=== PATIENT | female | born 1940 | race Hispanic/Latino ===

== ENCOUNTER 2016-08-16 12:08 | Outpatient (CLI) | payer MEDICARE, OTHER ==
[2016-08-16 13:06] LABS: Blood Urea Nitrogen 17 mg/dL (7-17)
[2016-08-16] MEDS ORDERED: NACL ONE (13:06)
--- NOTE | 2016-08-16 14:05 | Cat Scan Report ---
CT angiography of the chest with 3-D reconstructed images. History: Chest pain and positive history of pulmonary emboli in February 2015. Correlation with that study is made. Findings: There is no evidence of pulmonary emboli on today's study. The mediastinum and hilar regions are unremarkable. The lungs are clear. There is no pleural fluid. 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 Images which include a portion of the upper abdomen demonstrate a cystic mass in the left lobe of the liver unchanged from the previous study. Impression: No evidence of pulmonary emboli. 2. Stable hepatic cyst.
== END 2016-08-16 12:09 | disposition home or self-care (01) ==
LOC: CT 12:08
PROVIDERS: ATTEND Specialist
DX: I26.99 Other pulmonary embolism without acute cor pulmonale (principal); K76.89 Other specified diseases of liver; S53.104A Unspecified dislocation of right ulnohumeral joint, initial encounter; X58.XXXA Exposure to other specified factors, initial encounter; Y93.89 Activity, other specified; Y92.89 Other specified places as the place of occurrence of the external cause; Y99.8 Other external cause status
CPT/HCPCS: 36415; 71275; 82565; 84520; Q9967

== ENCOUNTER 2017-05-23 13:31 | Emergency (ER) | payer MEDICARE, OTHER ==
[2017-05-23] MEDS ORDERED: NACL 0.9% 1000 ML 1,000 ML IV ONE (14:38)
[2017-05-23 15:16] LABS: Basophils % (Auto) 0.2 % (0.0-1.8); Hematocrit 51.3 % (30.3-42.9); Hemoglobin 16.3 gm/dl (10.1-14.3); Lymphocytes # (Auto) 2.3 K/mm3 (1.2-5.4); Lymphocytes % (Auto) 12.4 % (13.4-35.0); Mean Corpuscular HGB Conc 32 % (30-34); Mean Corpuscular Hemoglobin 29 pg (28-32); Mean Corpuscular Volume 90 fl (79-97); Monocytes # (Auto) 0.8 K/mm3 (0.0-0.8); Monocytes % (Auto) 4.1 % (0.0-7.3); Platelet Count 217 K/mm3 (140-440); Red Blood Count 5.73 M/mm3 (3.65-5.03); Red Cell Distribution Width 15.1 % (13.2-15.2)
[2017-05-23 15:27] LABS: INR 1.02 (0.87-1.13); Partial Thromboplastin Time 32.5 Sec. (24.2-36.6)
[2017-05-23 15:41] LABS: Alanine Aminotransferase 10 units/L (7-56); Albumin 3.3 g/dL (3.9-5); BUN/Creatinine Ratio 20; Blood Urea Nitrogen 16 mg/dL (7-17); Calcium 8.9 mg/dL (8.4-10.2); Hemolysis Index 17; Lipase 21 units/L (13-60)
--- NOTE | 2017-05-24 07:19 | Emergency Department Report ---
ED General Adult HPI - General Chief complaint: GI Bleed Stated complaint: BLEEDING THROUGH RECTUM Time Seen by Provider: 05/24/17 06:49 Source: patient Mode of arrival: Wheelchair Limitations: No Limitations - History of Present Illness Initial comments: The patient states that she has a history of internal hemorrhoids. She noted one episode of bright blood per rectum she states approximately 18 hours ago. It was a small quantity. She states that her stool was hard at that time. She is currently taking Eliquis. She has never had a colonoscopy and is aware that one is recommended. She states she has discussed this with her primary care physician before. She does not complain of any abdominal pain. She is asymptomatic at this time. -: Gradual, minutes(s) Severity scale (0 -10): 0 Consistency: now resolved Improves with: none Worsens with: none Associated Symptoms: denies other symptoms Treatments Prior to Arrival: none - Related Data Home Medications Medication Instructions Recorded Confirmed Last Taken Atorvastatin Calcium [Lipitor] 20 mg PO QHS 02/14/15 03/06/15 03/06/15 Diltiazem HCl [Diltiazem 24Hr ER] 360 mg PO DAILY 02/14/15 03/06/15 03/06/15 Lisinopril [Zestril TAB] 20 mg PO QDAY 02/14/15 03/06/15 03/06/15 Oxaprozin [Daypro] 600 mg PO BID 02/14/15 03/06/15 03/06/15 Previous Rx's Medication Instructions Recorded Last Taken Type Apixaban [Eliquis] 5 mg PO BID #60 tablet 03/11/15 Unknown Rx Metoprolol [Lopressor TAB] 25 mg PO BID #60 tablet 03/11/15 Unknown Rx oxyCODONE /ACETAMINOPHEN [Percocet 1 tab PO Q6H PRN #30 tablet 03/11/15 Unknown Rx 5/325 mg] Docusate Sodium [Colace] 100 mg PO BID #30 capsule 05/24/17 Unknown Rx Allergies Allergy/AdvReac Type Severity Reaction Status Date / Time No Known Allergies Allergy Verified 02/14/15 14:16 ED Review of Systems ROS: Stated complaint: BLEEDING THROUGH RECTUM Other details as noted in HPI Constitutional: denies: chills, fever Eyes: denies: eye pain, eye discharge, vision change ENT: denies: ear pain, throat pain Respiratory: denies: cough, shortness of breath, wheezing Cardiovascular: denies: chest pain, palpitations Endocrine: no symptoms reported Gastrointestinal: hematochezia. denies: abdominal pain, nausea, diarrhea Genitourinary: denies: urgency, dysuria, discharge Musculoskeletal: denies: back pain, joint swelling, arthralgia Skin: denies: rash, lesions Neurological: denies: headache, weakness, paresthesias Psychiatric: denies: anxiety, depression Hematological/Lymphatic: denies: easy bleeding, easy bruising ED Past Medical Hx - Past Medical History Hx Hypertension: Yes Hx Pulmonary Embolism: Yes Hx Arthritis: Yes (osteoarthritis) Hx HIV: No Additional medical history: "murmur". high cholesterol. fermoral DVT, rehab post femoral surgery for 3mos. 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 - Social History Smoking Status: Never Smoker Substance Use Type: None - Medications Home Medications: Home Medications Medication Instructions Recorded Confirmed Last Taken Type Atorvastatin Calcium [Lipitor] 20 mg PO QHS 02/14/15 03/06/15 03/06/15 History Diltiazem HCl [Diltiazem 24Hr ER] 360 mg PO DAILY 02/14/15 03/06/15 03/06/15 History Lisinopril [Zestril TAB] 20 mg PO QDAY 02/14/15 03/06/15 03/06/15 History Oxaprozin [Daypro] 600 mg PO BID 02/14/15 03/06/15 03/06/15 History Apixaban [Eliquis] 5 mg PO BID #60 tablet 03/11/15 Unknown Rx Metoprolol [Lopressor TAB] 25 mg PO BID #60 tablet 03/11/15 Unknown Rx oxyCODONE /ACETAMINOPHEN [Percocet 1 tab PO Q6H PRN #30 tablet 03/11/15 Unknown Rx 5/325 mg] Docusate Sodium [Colace] 100 mg PO BID #30 capsule 05/24/17 Unknown Rx ED Physical Exam - General Limitations: No Limitations General appearance: alert, in no apparent distress - Head Head exam: Present: atraumatic, normocephalic - Eye Eye exam: Present: normal appearance. Absent: scleral icterus - ENT ENT exam: Present: mucous membranes moist - Neck Neck exam: Present: normal inspection. Absent: tenderness, meningismus - Respiratory Respiratory exam: Present: normal lung sounds bilaterally. Absent: respiratory distress - Cardiovascular Cardiovascular Exam: Present: regular rate, normal rhythm. Absent: systolic murmur, diastolic murmur, rubs, gallop - GI/Abdominal GI/Abdominal exam: Present: soft, normal bowel sounds. Absent: distended, tenderness, guarding, rebound, rigid - Extremities Exam Extremities exam: Present: normal inspection - Back Exam Back exam: Present: normal inspection - Neurological Exam Neurological exam: Present: alert, oriented X3, CN II-XII intact. Absent: motor sensory deficit - Psychiatric Psychiatric exam: Present: normal affect, normal mood - Skin Skin exam: Present: warm, dry, intact, normal color. Absent: rash ED Course Vital Signs 05/23/17 05/24/17 05/24/17 14:32 04:58 05:00 Temperature 98 F 97.8 F Pulse Rate 78 98 H Respiratory 18 20 18 Rate Blood Pressure 161/101 Blood Pressure 140/73 [Left] O2 Sat by Pulse 95 97 Oximetry - Reevaluation(s) Reevaluation #1: Patient has been here for nearly an day without any recurrent bleeding. I will place her on a stool softener and refer her to [facility]. She knows to return should she have any recurrent bleeding. 05/24/17 07:18 ED Medical Decision Making - Lab Data Result diagrams: 05/23/17 14:53 05/23/17 14:53 Laboratory Results - last 24 hr 05/23/17 05/23/17 05/23/17 14:53 14:53 14:53 WBC 18.7 H RBC 5.73 H Hgb 16.3 H Hct 51.3 H MCV 90 MCH 29 MCHC 32 RDW 15.1 Plt Count 217 Lymph % (Auto) 12.4 L Curry % (Auto) 4.1 Eos % (Auto) 0.0 Baso % (Auto) 0.2 Lymph # 2.3 Curry # 0.8 Eos # 0.0 Baso # 0.0 Seg Neutrophils % 83.3 H Seg Neutrophils # 15.5 H PT 13.9 INR 1.02 APTT 32.5 Sodium 141 Potassium 4.2 Chloride 102.6 Carbon Dioxide 24 Anion Gap 19 BUN 16 Creatinine 0.8 Estimated GFR > 60 BUN/Creatinine Ratio 20 Glucose 97 Calcium 8.9 Total Bilirubin 0.70 AST 14 ALT 10 Alkaline Phosphatase 80 Total Protein 6.7 Albumin 3.3 L Albumin/Globulin Ratio 1.0 Lipase 21 Blood Type Antibody Screen 05/23/17 14:53 WBC RBC Hgb Hct MCV MCH MCHC RDW Plt Count Lymph % (Auto) Curry % (Auto) Eos % (Auto) Baso % (Auto) Lymph # Curry # Eos # Baso # Seg Neutrophils % Seg Neutrophils # PT INR APTT Sodium Potassium Chloride Carbon Dioxide Anion Gap BUN Creatinine Estimated GFR BUN/Creatinine Ratio Glucose Calcium Total Bilirubin AST ALT Alkaline Phosphatase Total Protein Albumin Albumin/Globulin Ratio Lipase Blood Type O NEGATIVE Antibody Screen Negative Critical care attestation.: If time is entered above; I have spent that time in minutes in the direct care of this critically ill patient, excluding procedure time. ED Disposition Clinical Impression: Rectal bleeding Disposition: DC-01 TO HOME OR SELFCARE Is pt being admited?: No Does the pt Need Aspirin: No Condition: Stable Instructions: Rectal Bleeding (ED) Additional Instructions: Do not take aspirin, Advil, Naprosyn or any axwy-pat-sydbgeq aspirin-like medication. Return if any recurrent bleeding. Further evaluation is necessary with a weight tester. See referral. Rx stool softener. Prescriptions: Docusate Sodium [Colace] 100 mg PO BID #30 capsule Referrals: PRIMARY CARE [Primary Care Provider] - 3-5 Days [facility] [Provider Group] - 3-5 Days Time of Disposition: 07:21
[2017-05-24 07:41] VITALS: BP 132/76
== END 2017-05-24 07:41 | disposition home or self-care (01) ==
LOC: ED 13:31
DX: K62.5 Hemorrhage of anus and rectum (principal); I10 Essential (primary) hypertension; M19.90 Unspecified osteoarthritis, unspecified site; Z98.51 Tubal ligation status; Z86.711 Personal history of pulmonary embolism; Z98.890 Other specified postprocedural states
CPT/HCPCS: 36415; 80053; 83690; 85025; 85610; 85730; 86850; 86900; 86901; 93005; 93010; 99284

== ENCOUNTER 2018-11-17 19:39 | Emergency (ER) | payer MEDICARE, OTHER ==
[2018-11-17 19:46] VITALS: BP 157/91
[2018-11-17 20:36] LABS: Hemoglobin 14.3 gm/dl (10.1-14.3); Mean Corpuscular HGB Conc 35 % (30-34); Mean Corpuscular Volume 90 fl (79-97); Platelet Count 204 K/mm3 (140-440); Red Blood Count 4.55 M/mm3 (3.65-5.03); Red Cell Distribution Width 14.4 % (13.2-15.2)
[2018-11-17 20:46] LABS: INR 1.41 (0.87-1.13)
[2018-11-17 20:47] LABS: Partial Thromboplastin Time 33.4 Sec. (24.2-36.6)
[2018-11-17 20:52] LABS: BUN/Creatinine Ratio 20; Blood Urea Nitrogen 16 mg/dL (7-17); Calcium 8.9 mg/dL (8.4-10.2); Hemolysis Index 5
--- NOTE | 2018-11-17 20:58 | Emergency Department Report ---
ED Extremity Problem HPI - General Chief complaint: Extremity Injury, Upper Stated complaint: BRUISING ON ARM Time Seen by Provider: 11/17/18 20:04 Source: patient, EMS Mode of arrival: Stretcher Limitations: No Limitations - History of Present Illness Initial comments: 77-year-old female presents to ED with bruising to right shoulder since yesterday. Patient has history of atrial fibrillation and PE, currently taking Eliquis. Patient states that she noticed bruising to her right shoulder and into her right anterior chest wall and right breast. Patient denies trauma. Patient denies pain in the area of the bruise. Patient reports history of ch ronically dislocated right shoulder that was never reduced, at baseline has decreased range of motion but states it is more decreased than usual since yesterday. Denies pain to the shoulder. MD Complaint: other (bruising) -: days(s) (2) Location: right, upper extremity History of Same: No -: No myalgia, No arthralgia, No fever, No associated dyspnea, No associated chest pain Quality: other (painless) Consistency: constant Improves with: nothing Worsens with: nothing Associated Symptoms: denies: chest pain, shortness of breath, fever, myalgias, arthralgias - Related Data Home Medications Medication Instructions Recorded Confirmed Last Taken Atorvastatin Calcium [Lipitor] 20 mg PO QHS 02/14/15 03/06/15 03/06/15 Lisinopril [Zestril TAB] 20 mg PO QDAY 02/14/15 03/06/15 03/06/15 Oxaprozin [Daypro] 600 mg PO BID 02/14/15 03/06/15 03/06/15 dilTIAZem HCl [Diltiazem 24Hr ER 360 mg PO DAILY 02/14/15 03/06/15 03/06/15 (LA)] Previous Rx's Medication Instructions Recorded Last Taken Type Apixaban [Eliquis] 5 mg PO BID #60 tablet 03/11/15 Unknown Rx Metoprolol [Lopressor TAB] 25 mg PO BID #60 tablet 03/11/15 Unknown Rx oxyCODONE /ACETAMINOPHEN [Percocet 1 tab PO Q6H PRN #30 tablet 03/11/15 Unknown Rx 5/325 mg] Docusate Sodium [Colace] 100 mg PO BID #30 capsule 05/24/17 Unknown Rx traMADol [Ultram] 50 mg PO Q6HR PRN #7 tablet 11/18/18 Unknown Rx Allergies Allergy/AdvReac Type Severity Reaction Status Date / Time No Known Allergies Allergy Verified 02/14/15 14:16 ED Review of Systems ROS: Stated complaint: BRUISING ON ARM Other details as noted in HPI Comment: All other systems reviewed and negative Constitutional: denies: chills, fever Respiratory: denies: shortness of breath Cardiovascular: denies: chest pain Musculoskeletal: other (reports decreased ROM in right shoulder) Hematological/Lymphatic: easy bruising ED Past Medical Hx - Past Medical History Previous Medical History?: Yes Hx Hypertension: Yes Hx Pulmonary Embolism: Yes Hx Arthritis: Yes (osteoarthritis) Hx HIV: No Additional medical history: "murmur". high cholesterol. fermoral DVT, rehab post femoral surgery for 3mos. 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 - Social History Smoking Status: Never Smoker - Medications Home Medications: Home Medications Medication Instructions Recorded Confirmed Last Taken Type Atorvastatin Calcium [Lipitor] 20 mg PO QHS 02/14/15 03/06/15 03/06/15 History Lisinopril [Zestril TAB] 20 mg PO QDAY 02/14/15 03/06/15 03/06/15 History Oxaprozin [Daypro] 600 mg PO BID 02/14/15 03/06/15 03/06/15 History dilTIAZem HCl [Diltiazem 24Hr ER 360 mg PO DAILY 02/14/15 03/06/15 03/06/15 History ([place])] Apixaban [Eliquis] 5 mg PO BID #60 tablet 03/11/15 Unknown Rx Metoprolol [Lopressor TAB] 25 mg PO BID #60 tablet 03/11/15 Unknown Rx oxyCODONE /ACETAMINOPHEN [Percocet 1 tab PO Q6H PRN #30 tablet 03/11/15 Unknown Rx 5/325 mg] Docusate Sodium [Colace] 100 mg PO BID #30 capsule 05/24/17 Unknown Rx traMADol [Ultram] 50 mg PO Q6HR PRN #7 tablet 11/18/18 Unknown Rx ED Physical Exam - General Limitations: No Limitations General appearance: alert, in no apparent distress - Head Head exam: Present: atraumatic, normocephalic - Eye Eye exam: Present: normal appearance, PERRL, EOMI - ENT ENT exam: Present: mucous membranes moist - Neck Neck exam: Present: normal inspection - Respiratory Respiratory exam: Present: normal lung sounds bilaterally. Absent: respiratory distress - Cardiovascular Cardiovascular Exam: Present: regular rate, normal rhythm - GI/Abdominal GI/Abdominal exam: Present: soft. Absent: distended, tenderness - Extremities Exam Extremities exam: Present: other (decreased ROM to right shoulder, no swelling present, echymosis to right shoulder) - Skin Skin exam: Present: warm, dry, intact, ecchymosis (ecchymosis extending from right shoulder into right upper anterior chest wall down into entire right breast) ED Course Vital Signs 11/17/18 11/17/18 11/18/18 19:41 21:06 02:50 Temperature 97.8 F Pulse Rate 83 98 H Respiratory 13 16 16 Rate Blood Pressure 157/91 O2 Sat by Pulse 97 100 Oximetry ED Medical Decision Making - Lab Data Result diagrams: 11/17/18 20:16 11/17/18 20:16 - Radiology Data Radiology results: report reviewed, image reviewed - Medical Decision Making - 77 yo F, on Eliquis, with extensive ecchymosis to right anterior chest wall - hx of chronic right shoulder dislocation; seen on imaging today - possible right 1st and 2nd nondispl rib fxs seen on CT Chest; no other abnormalities - pt denies fall or assault; CT Head ordered since it seems as though pt suffered some sort of trauma; CT Head negative - neuro exam normal, A&Ox3 - pt denies pain currently, however, rx given for ultram - pt does not meet inpatient criteria; no significant pain; no splinting on exam - will d/c at this time - return precautions given - PCP f/u advised - Differential Diagnosis hematoma, humerus fracture, rib fracture Critical care attestation.: If time is entered above; I have spent that time in minutes in the direct care of this critically ill patient, excluding procedure time. ED Disposition Clinical Impression: Chronic dislocation of right shoulder, Hematoma of right chest wall, Rib fractures Disposition: - TO HOME OR SELFCARE Is pt being admited?: No Condition: Stable Instructions: Rib Fracture (ED), Contusion in Adults (ED) Prescriptions: traMADol [Ultram] 50 mg PO Q6HR PRN #7 tablet PRN Reason: Pain Referrals: PRIMARY CAREMD [Primary Care Provider] - 3-5 Days GRETEL MENDOSA MD [Staff Physician] - 3-5 Days Time of Disposition: 01:05
--- NOTE | 2018-11-17 21:42 | XRay Report ---
RIGHT SHOULDER 2 VIEWS INDICATION / CLINICAL INFORMATION: bruising. COMPARISON: None available. FINDINGS: Bones appear osteopenic. Right humeral head is dislocated anteriorly and inferiorly from the glenoid fossa. Proximal humerus is not optimally seen to evaluate for possible fracture. Signer Name: Abel Mensah MD Signed: 11/17/2018 9:38 PM Workstation Name: [id number]
--- NOTE | 2018-11-17 21:43 | XRay Report ---
CHEST 1 VIEW INDICATION: bruising to right chest COMPARISON: None FINDINGS: Support devices: None Heart: Upper limits of normal Lungs/Pleura: No acute pulmonary or pleural findings. IMPRESSION: 1. Right shoulder dislocation. No pneumothorax or other acute disease in the chest Signer Name: Abel Mensah MD Signed: 11/17/2018 9:39 PM Workstation Name: [id number]
--- NOTE | 2018-11-17 22:37 | Cat Scan Report ---
CT chest w con INDICATION: ecchymosis to right shoulder, R ant chest,R breast. TECHNIQUE: All CT scans at this location are performed using CT dose reduction for ALARA by means of automated e xposure control. COMPARISON: None available. FINDINGS: Large "mass" in the right upper chest wall and shoulder region is consistent with large hematoma. Sli ght atelectasis in the right base, but no pneumothorax or pulmonary contusion. There appear to be chi y minimally displaced fractures of the right first and second ribs. Mediastinum and carlos are negative . IMPRESSION: 1. Large hematoma in the right upper chest wall and right shoulder. Probable very minimally displaced fractures involving the right first and second ribs. No pneumothorax, pulmonary contusion or other a cute intrathoracic abnormality. Signer Name: Abel Mensah MD Signed: 11/17/2018 10:33 PM Workstation Name: [id number]
--- NOTE | 2018-11-18 00:34 | Cat Scan Report ---
CT HEAD WITHOUT CONTRAST INDICATION: fall. TECHNIQUE: All CT scans at this location are performed using CT dose reduction for ALARA by means of automated e xposure control. COMPARISON: None available. FINDINGS: HEMORRHAGE: None. EXTRA-AXIAL SPACES: Normal in size and morphology for the patient's age. VENTRICULAR SYSTEM: Normal in size and morphology for the patient's age. BRAIN PARENCHYMA: No acute findings. MIDLINE SHIFT OR HERNIATION: None. ORBITS: Normal as visualized. SOFT TISSUES OF HEAD: Normal. CALVARIUM: Normal. VISUALIZED PARANASAL SINUSES AND MASTOID AIR CELLS: Clear. ADDITIONAL FINDINGS: Contrast is noted in the vessels, this is residual from the recent CT chest. IMPRESSION: 1. No acute intracranial abnormality. Signer Name: Mendoza Jaimes MD Signed: 11/18/2018 12:30 AM Workstation Name: [id number]
== END 2018-11-18 02:00 | disposition home or self-care (01) ==
LOC: ED 19:39
DX: S22.41XA Multiple fractures of ribs, right side, initial encounter for closed fracture (principal); S20.211A Contusion of right front wall of thorax, initial encounter; M24.411 Recurrent dislocation, right shoulder; G89.29 Other chronic pain; I48.91 Unspecified atrial fibrillation; Z86.711 Personal history of pulmonary embolism; Z79.899 Other long term (current) drug therapy; I10 Essential (primary) hypertension; M19.90 Unspecified osteoarthritis, unspecified site; E78.00 Pure hypercholesterolemia, unspecified; Z86.718 Personal history of other venous thrombosis and embolism; Z98.51 Tubal ligation status; X58.XXXA Exposure to other specified factors, initial encounter; Y93.89 Activity, other specified; Y92.89 Other specified places as the place of occurrence of the external cause; Y99.8 Other external cause status
CPT/HCPCS: 36415; 70450; 71045; 71260; 73030; 80048; 85027; 85610; 85730; 93005; 93010; 99284; Q9967